=== PATIENT | male | born 1960 | race Caucasian/White ===

== ENCOUNTER 2017-08-22 14:26 | Outpatient (CLI) | payer BC ==
[2017-08-22 15:51] LABS: Hematocrit 46.1 % (42.0-52.0); Mean Platelet Volume 7.3 fL (7.4-10.4); Red Blood Cell (RBC) Count 5.03 mill/uL (4.70-6.10); White Blood Cell (WBC) Count 6.8 thou/uL (4.8-10.8)
[2017-08-22 16:00] LABS: PTT 24.1 SEC (22.9-36.1); Prothrombin Time 12.5 SEC (12.0-14.7)
[2017-08-22 16:12] LABS: ALT (SGPT) 53 U/L (8-55); AST (SGOT) 31 U/L (5-34); Alkaline Phosphatase 67 U/L (40-150); Anion Gap 13 mmol/L (10-20); BUN (Urea Nitrogen) 12 mg/dL (8.4-25.7); Bilirubin, Total 0.8 mg/dL (0.2-1.2); Calc. Creatinine Clearance 0 mL/min (70-130); Carbon Dioxide 27 mmol/L (22-29); Chloride 105 mmol/L (98-107); Estimated GFR-MDRD 84; Globulin 3.4 g/dL (2.4-3.5); Protein, Total 7.8 g/dL (6.0-8.3)
== END 2017-08-22 14:27 | disposition home or self-care (01) ==
LOC: LABBT 14:26
PROVIDERS: ATTEND Internal Medicine Cardiovascular Disease
DX: Z01.818 Encounter for other preprocedural examination (principal); R07.89 Other chest pain; R94.31 Abnormal electrocardiogram [ECG] [EKG]
CPT/HCPCS: 80053; 85027; 85610; 85730

== ENCOUNTER 2017-08-23 07:00 | Day surgery (SDC) | payer BC ==
[2017-08-22 15:01] VITALS: BMI 32.3
[2017-08-23] MEDS ORDERED: Diazepam 5 MG TAB ONE (07:12)
--- NOTE | 2017-08-23 13:45 | DIS ---
HISTORY: The patient is a pleasant 57-year-old on gentleman who presents for evaluation of chest discomfort and dyspnea. The patient presented reporting that he was having substernal chest pain that occurred with and without exertion. He had been having great difficulty controlling his blood pressure. The patient denied having any PND or orthopnea. HOSPITAL COURSE: On 08/23/2017, the patient underwent a left heart catheterization. He was found to have normal left ventricular systolic function. The left anterior descending artery was free of significant disease. Left circumflex artery was a large caliber vessel. There was a 50% lesion and a 70% lesion in the posterior descending artery. The right coronary was a small, nondominant vessel. The patient felt to have significant single vessel coronary artery disease. The patient will be treated initially with medical therapy, Norvasc will be added to his medical regimen. DISCHARGE MEDICATIONS: Crestor 20 at bedtime, aspirin 162 daily, metoprolol 50 XL daily, Norvasc 5 daily, nitroglycerin daily, allopurinol 100 daily. MTDD
--- NOTE | 2017-08-23 14:34 | EKG ---
Test Reason : PREOP Blood Pressure : / mmHG Vent. Rate : 060 BPM Atrial Rate : 060 BPM P-R Int : 172 ms QRS Dur : 096 ms QT Int : 420 ms P-R-T Axes : 030 040 041 degrees QTc Int : 420 ms Normal sinus rhythm Normal ECG Confirmed by MIKE GOMEZ ([id number]) on 08/23/2017 2:33:34 PM Referred By: JASON Confirmed By:MIKE GOMEZ
== END 2017-08-23 13:44 | disposition home or self-care (01) ==
LOC: CCL 07:00
PROVIDERS: ATTEND Internal Medicine Cardiovascular Disease
DX: R07.2 Precordial pain (principal); M1A.00X0 Idiopathic chronic gout, unspecified site, without tophus (tophi); E78.5 Hyperlipidemia, unspecified; N52.9 Male erectile dysfunction, unspecified; M19.90 Unspecified osteoarthritis, unspecified site; Z79.899 Other long term (current) drug therapy
CPT/HCPCS: 80061; 93005; 93010; 93458; C1769; J1644